=== PATIENT | female | born 1955 | race African-American/Black ===

== ENCOUNTER 2022-06-07 08:57 | Emergency (ER) | payer OTHER, MEDICARE ==
[~2022-06-07] VITALS: Ht 160 cm; Wt 84.0 kg
[2022-06-07 09:10] VITALS: BP 186/99
[2022-06-07] MEDS ORDERED: IBUPROFEN TABLET 200 MG TAB PO ONE (09:15)
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
== END 2022-06-07 09:25 | disposition home or self-care (01) ==
LOC: EDUNIT# 08:57 → ER FS 08:59
DX: S50.12XA Contusion of left forearm, initial encounter (principal); V40.5XXA Car driver injured in collision with pedestrian or animal in traffic accident, initial encounter; Y92.410 Unspecified street and highway as the place of occurrence of the external cause